=== PATIENT | female | born 1970 | race Caucasian/White ===

== ENCOUNTER 2020-11-26 05:35 | Emergency (ER) | payer OTHER ==
[~2020-11-26] VITALS: Ht 172.7 cm; Wt 104.3 kg
--- NOTE | 2020-11-26 05:44 | NUR ---
TO BED AMBULATORY
[2020-11-26 05:51] VITALS: BP 138/87
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
--- NOTE | 2020-11-26 06:14 | NUR ---
Dr. Bowden examining patient.
--- NOTE | 2020-11-26 06:57 | NUR ---
PT TAKEN TO XRAY
--- NOTE | 2020-11-26 07:02 | NUR ---
PT RETURN FROM XRAY
[2020-11-26] MEDS ORDERED: LID5T TP (07:06)
[2020-11-26] MEDS ORDERED: NAPR-54 PO (07:06)
[2020-11-26] MEDS ORDERED: KETOROLAC 30 MG/ML VIAL IM ONE (07:10)
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
[2020-11-26 07:31] VITALS: BP 124/78
--- NOTE | 2020-11-26 07:31 | NUR ---
Patient discharged with v/s stable. Written and verbal after care instructions given and explained. Patient alert, oriented and verbalized understanding of instructions. Ambulatory with steady gait. All questions addressed prior to discharge. ID band removed. Patient advised to follow up with PMD. Rx of Lidocain patch and Naproxen was given. Patient educated on indication of medication including possible reaction and side effects. Opportunity to ask questions provided and answered.
== END 2020-11-26 07:31 | disposition home or self-care (01) ==
LOC: MED 05:35
DX: S16.1XXA Strain of muscle, fascia and tendon at neck level, initial encounter (principal); V98.8XXA Other specified transport accidents, initial encounter; Y93.89 Activity, other specified; Y92.89 Other specified places as the place of occurrence of the external cause; Y99.8 Other external cause status
CPT/HCPCS: 71046; 96372; 99283; J1885